=== PATIENT | male | born 1970 | race Caucasian/White ===

== ENCOUNTER 2016-08-27 22:06 | Emergency (ER) | payer BC, OTHER ==
[~2016-08-27] VITALS: Ht 182.9 cm; Wt 98.3 kg
[2016-08-27 22:07] VITALS: Ht 182.9 cm; Wt 98.3 kg
--- NOTE | 2016-08-27 22:22 | EMERGENCY ROOM VISIT NOTE ---
History Report prepared by Analiibdaiana: Reese Najera Under the Supervision of: Dr. Wesley Rebollar D.O. First contact with patient: 22:12 Chief Complaint: FLU LIKE SX Stated Complaint: FEVER,CHILLS,JOINTS HURT/ACHE History of Present Illness The patient is a 46 year old male who presents to the Emergency Room with complaints of waxing & waning fevers for the past two days. The patient's temperature reached up to 103. He has also been intermittently experiencing chills and sweaty episodes. The patient was also initially experiencing joint pain which resolved. He denies cough, congestion, vomiting, diarrhea, or urinary symptoms. The patient was treated for Lyme disease 2-3 years ago. He recently had a tick bite on his back but has not noticed any new rashes. The patient denies history of cancer, leukemia, or pneumonia. His is not ill. The patient works as a school bus mechanic. Source of History: patient Onset: two days ago Position: other (global) Symptom Intensity: up to 103 Quality: other (febrile) Timing: waxes/wanes Associated Symptoms: + chills, + diaphoresis, No cough, No diarrhea, No rash , No urinary symptoms, No vomiting Review of Systems See HPI for pertinent positives and negatives. A total of ten systems were reviewed and were otherwise negative. Past Medical & Surgical Medical Problems: (1) H/o Lyme disease Family History No pertinent family history Social History Smoking Status: Never Smoker Housing Status: lives with family Occupation Status: employed Current/Historical Medications Scheduled PRN Ibuprofen (Advil), 200-600 MG PO Q4H PRN for Pain or Fever Allergies Coded Allergies: No Known Allergies (Unverified , 08/27/16) Physical Exam Vital Signs Date Time Temp Pulse Resp B/P Pulse Ox O2 Delivery O2 Flow Rate FiO2 08/28/16 00:13 37.1 68 21 131/84 96 Room Air 08/27/16 23:26 67 08/27/16 23:17 Room Air 08/27/16 22:07 37.3 90 18 140/88 95 Room Air Physical Exam GENERAL: Awake, alert, well-appearing, in no distress HENT: Normocephalic, atraumatic. Oropharynx unremarkable. EYES: Normal conjunctiva. Sclera non-icteric. NECK: Supple. No nuchal rigidity. FROM. No JVD. RESPIRATORY: Clear to auscultation. CARDIAC: Regular rate, normal rhythm. Extremities warm and well perfused. Pulses equal. ABDOMEN: Soft, non-distended. No tenderness to palpation. No rebound or guarding. No masses. RECTAL: Deferred. MUSCULOSKELETAL: Chest examination reveals no tenderness. The back is symmetrical on inspection without obvious abnormality. There is no CVA tenderness to palpation. No joint edema. LOWER EXTREMITIES: Calves are equal size bilaterally and non-tender. No edema. No discoloration. NEURO: Normal sensorium. No sensory or motor deficits noted. SKIN: No rash or jaundice noted. Medical Decision & Procedures Laboratory Results 08/27/16 22:45 Red Blood Count 4.98, Mean Corpuscular Volume 89.4, Mean Corpuscular Hemoglobin 29.9, Mean Corpuscular Hemoglobin Concent 33.5, Mean Platelet Volume 9.5, Neutrophils (%) (Auto) 82.5, Lymphocytes (%) (Auto) 10.8, Monocytes (%) (Auto) 6.1, Eosinophils (%) (Auto) 0.0, Basophils (%) (Auto) 0.4, Neutrophils # (Auto) 4.04, Lymphocytes # (Auto) 0.53, Monocytes # (Auto) 0.30, Eosinophils # (Auto) 0.00, Basophils # (Auto) 0.02 08/27/16 22:45 Test 08/27/16 22:45 08/27/16 23:20 White Blood Count 4.90 K/uL (4.8-10.8) Red Blood Count 4.98 M/uL (4.7-6.1) Hemoglobin 14.9 g/dL (14.0-18.0) Hematocrit 44.5 % (42-52) Mean Corpuscular Volume 89.4 fL (80-100) Mean Corpuscular Hemoglobin 29.9 pg (25-34) Mean Corpuscular Hemoglobin Concent 33.5 g/dl (32-36) Platelet Count 173 K/uL (130-400) Mean Platelet Volume 9.5 fL (7.4-10.4) Neutrophils (%) (Auto) 82.5 % Lymphocytes (%) (Auto) 10.8 % Monocytes (%) (Auto) 6.1 % Eosinophils (%) (Auto) 0.0 % Basophils (%) (Auto) 0.4 % Neutrophils # (Auto) 4.04 K/uL (1.4-6.5) Lymphocytes # (Auto) 0.53 K/uL (1.2-3.4) Monocytes # (Auto) 0.30 K/uL (0.11-0.59) Eosinophils # (Auto) 0.00 K/uL (0-0.5) Basophils # (Auto) 0.02 K/uL (0-0.2) RDW Standard Deviation 40.8 fL (36.4-46.3) RDW Coefficient of Variation 12.5 % (11.5-14.5) Immature Granulocyte % (Auto) 0.2 % Immature Granulocyte # (Auto) 0.01 K/uL (0.00-0.02) Anion Gap 10.0 mmol/L (3-11) Est Creatinine Clear Calc Drug Dose 80.9 ml/min Estimated GFR () 69.8 Estimated GFR (Non- 60.3 BUN/Creatinine Ratio 8.9 (10-20) Calcium Level 8.2 mg/dl (8.5-10.1) Total Bilirubin 0.7 mg/dl (0.2-1) Direct Bilirubin mg/dl (0-0.2) Aspartate Amino Transf (AST/SGOT) 50 U/L (15-37) Alanine Aminotransferase (ALT/SGPT) 51 U/L (12-78) Alkaline Phosphatase 101 U/L (45-117) Total Protein 6.6 gm/dl (6.4-8.2) Albumin 3.4 gm/dl (3.4-5.0) Chemistry Specimen Hemolysis Lyme Disease IgG Antibody NEG (NEG) Urine Color DK YELLOW Urine Appearance CLEAR (CLEAR) Urine pH 6.0 (4.5-7.5) Urine Specific [place] 1.015 (1.000-1.030) Urine Protein 1+ (NEG) Urine Glucose (UA) NEG (NEG) Urine Ketones TRACE (NEG) Urine Occult Blood NEG (NEG) Urine Nitrite NEG (NEG) Urine Bilirubin NEG (NEG) Urine Urobilinogen NEG (NEG) Urine Leukocyte Esterase NEG (NEG) Urine WBC (Auto) 1-5 /hpf (0-5) Urine RBC (Auto) 0-4 /hpf (0-4) Urine Hyaline Casts (Auto) 1-5 /lpf (0-5) Urine Epithelial Cells (Auto) 10-20 /lpf (0-5) Urine Bacteria (Auto) NEG (NEG) Laboratory results reviewed by me Medications Administered Medications (Trade) Dose Ordered Sig/Misty Route Start Time Stop Time Status Last Admin Dose Admin Sodium Chloride (Nss 1000ml) 1,000 ml @ 999 mls/hr Q1H1M STAT IV 08/27/16 22:25 08/27/16 23:25 DC 08/27/16 23:10 999 MLS/HR ED Course 2215: The patient was evaluated in room B11b. A complete history and physical exam was performed. 2225: NSS 1000 ml @ 999 mls/hr. 0015: The patient is resting, in no distress. He has no current complaints.Discussed results and discharge instructions: He verbalized understanding and agreement. The patient is ready for discharge. Medical Decision Differential diagnosis includes viral illness, upper respiratory tract infection , urinary symptoms, Lyme disease. Patient feels much improved on repeat examination at 12:20 AM, patient has a history of Lyme I will empirically place the patient on doxycycline until we have his Lyme Western blot return. He understands this and will follow this primary care physician Impression Primary Impression: Febrile illness Scribe Attestation The scribe's documentation has been prepared under my direction and personally reviewed by me in its entirety. I confirm that the note above accurately reflects all work, treatment, procedures, and medical decision making performed by me. Departure Information Dispostion Home / Self-Care Prescriptions Doxycycline Hyclate (VIBRAMYCIN) 100 Mg Cap 100 MG PO BID for 21 Days, #42 CAP Prov: Wesley Rebollar, DO 08/28/16 Forms HOME CARE DOCUMENTATION FORM, IMPORTANT VISIT INFORMATION Patient Instructions ED Viral Syndrome, My [facility] Additional Instructions Follow-up with her primary care physician this week for repeat examination. Please take doxycycline until follow-up with primary care physician we have urine western blot Lyme disease returned
[2016-08-27] MEDS ORDERED: SODIUM CHLORIDE 0.9% 1000ML 1,000 ML IV STA (22:25)
[2016-08-27 23:05] LABS: BASO % 0.4 %; BASO ABS # 0.02 K/uL (0-0.2); COMPLETE YES; HEMATOCRIT 44.5 % (42-52); IG% 0.2 %; LYMPH % 10.8 %; LYMPH ABS # 0.53 K/uL (1.2-3.4); MEAN CELL VOLUME 89.4 fL (80-100); MEAN CORPUSCULAR HEMOGLOBIN 29.9 pg (25-34); MEAN CORPUSCULAR HGB CONC 33.5 g/dl (32-36); MEAN PLATELET VOLUME 9.5 fL (7.4-10.4); MONO % 6.1 %; NEUT % 82.5 %; PLATELET COUNT 173 K/uL (130-400); RED BLOOD COUNT 4.98 M/uL (4.7-6.1)
[2016-08-27] MEDS ORDERED: IBUP-1050 PO (23:19)
[2016-08-27 23:36] LABS: ALKALINE PHOSPHATASE 101 U/L (45-117); ALT/SGPT 51 U/L (12-78); AST/SGOT 50 U/L (15-37); BLOOD UREA NITROGEN 12 mg/dl (7-18); BUN/CREATININE RATIO 8.9 (10-20); CALCIUM 8.2 mg/dl (8.5-10.1); CARBON DIOXIDE 27 mmol/L (21-32); CHLORIDE 107 mmol/L (98-107); GLUCOSE 111 mg/dl (70-99); POTASSIUM 3.5 mmol/L (3.5-5.1); SODIUM 144 mmol/L (136-145)
[2016-08-27 23:57] LABS: URINE APPEARANCE CLEAR (CLEAR); URINE BILIRUBIN NEG (NEG); URINE COLOR DK YELLOW; URINE NITRITE NEG (NEG); URINE SPECIFIC GRAVITY 1.015 (1.000-1.030); UROBILINOGEN NEG (NEG)
[2016-08-27 23:58] LABS: MANUAL MICROSCOPIC REQUIRED? NO; REVIEW REQ? NO
[2016-08-28 00:01] LABS: LYME DISEASE AB IGG NEG (NEG)
[2016-08-28 00:04] LABS: LYME DISEASE AB IGM EQUIVOCAL (NEG)
[2016-08-28] MEDS ORDERED: DOXY100C PO (00:22)
[2016-08-28 00:36] VITALS: BP 131/84; PULSE 68; TEMP 37.1; O2SAT 96
[2016-09-01 20:33] LABS: 18KDIGG BAND NONREACTIVE (NONREACTIVE); 23KDIGG BAND REACTIVE (NONREACTIVE); 23KDIGM BAND REACTIVE (NONREACTIVE); 28KDIGG BAND NONREACTIVE (NONREACTIVE); 30KDIGG BAND NONREACTIVE (NONREACTIVE); 39KDIGG BAND REACTIVE (NONREACTIVE); 39KDIGM BAND NONREACTIVE (NONREACTIVE); 41KDIGG BAND REACTIVE (NONREACTIVE); 41KDIGM BAND NONREACTIVE (NONREACTIVE); 45KDIGG BAND REACTIVE (NONREACTIVE); 58KDIGG BAND REACTIVE (NONREACTIVE); 66KDIGG BAND REACTIVE (NONREACTIVE); 93KDIGG BAND NONREACTIVE (NONREACTIVE)
== END 2016-08-28 00:37 | disposition home or self-care (01) ==
LOC: C.EDB 22:07
DX: R50.9 Fever, unspecified (principal); Z87.898 Personal history of other specified conditions